=== PATIENT | male | born 1990 | race African-American/Black ===

== ENCOUNTER 2020-10-31 19:39 | Emergency (ER) | payer SELFPAY ==
[~2020-10-31] VITALS: Ht 200.7 cm; Wt 123.0 kg
[2020-10-31] MEDS ORDERED: KETOROLAC 60MG/2ML VIAL IM ONE (20:30)
[2020-10-31] MEDS ORDERED: ONDANSETRON 4MG ODT PO ONE (20:30)
[2020-10-31] MEDS ORDERED: ACETAMINOPHEN 325MG TABLET PO ONE (20:30)
[2020-10-31 21:30] VITALS: BP 120/80
== END 2020-10-31 22:03 | disposition home or self-care (01) ==
LOC: ER 19:50
DX: U07.1 COVID-19 (principal); M79.18 Myalgia, other site; R50.9 Fever, unspecified
CPT/HCPCS: 96372; 99283; J1885; Q0162